=== PATIENT | male | born 1955 | race Caucasian/White ===

== ENCOUNTER 2020-06-22 21:42 | Inpatient (IN) | payer MEDICAID ==
[~2020-06-22] VITALS: Ht 170.2 cm; Wt 90.3 kg
[2020-06-22 21:30] VITALS: BP 124/100
[2020-06-22 22:00] VITALS: BP 126/94
[2020-06-22] MEDS ORDERED: BISACODYL 10MG SUPP PR PRN (22:15)
[2020-06-22] MEDS ORDERED: NITROGLYCERIN 0.4MG TABLET SL SL PRN (22:15)
[2020-06-22] MEDS ORDERED: ACETAMINOPHEN 325MG TABLET PO PRN (22:15)
[2020-06-22] MEDS ORDERED: ASCORBIC ACID 500 MG TABLET PO SCH (22:30)
[2020-06-22] MEDS ORDERED: DOCUSATE SODIUM 100MG CAPSULE PO SCH (23:00)
[2020-06-22] MEDS ORDERED: CHLORHEXIDINE GLUCONATE 4% EXTERNAL USE TOP SCH (23:00)
[2020-06-22] MEDS ORDERED: FUROSEMIDE 40MG/4ML VIAL IVP NR (23:00)
[2020-06-22] MEDS: ALLOPURINOL 300 MG TABLET PO SCH (23:19)
[2020-06-22] MEDS ORDERED: MAGNESIUM 2 G PREMIX 50 ML IV NR (23:30)
[2020-06-22 23:43] LABS: BASOPHILS % 0.7 % (0.0-2.0); HEMATOCRIT. 52.9 % (42.0-52.0); LYMPHOCYTES % 11.6 % (20.0-50.0); MEAN CORPUSCULAR HEMOGLOBIN 30.6 pg (28.0-32.0); MEAN CORPUSCULAR VOLUME 95.2 fL (80.0-94.0); MEAN PLATELET VOLUME 10.9 fl (7.4-10.4); MONOCYTES % 13.9 % (2.0-8.0); NEUTROPHILS % 72.8 % (40.0-76.0); PLATELET 129 x1000/uL (130-400); RED BLOOD CELL COUNT 5.56 mill/uL (4.7-6.1); RED CELL DISTRIBUTION WIDTH 16.1 % (11.6-14.6)
[2020-06-22 23:50] LABS: CHLORIDE 98 mEq/L (98-107)
[2020-06-22 23:52] LABS: INR 1.2; PARTIAL THROMBOPLASTIN TIME 27.3 sec (23.4-31.0)
[2020-06-23] VITALS (50 sets, daily range): BP systolic 48–165; BP diastolic 28–108
[2020-06-23] MEDS ORDERED: THROMBIN (BOVINE) 5000 UNITS/VIAL TOP ONE (05:24)
[2020-06-23] MEDS ORDERED: SKIN ADHESIVE 0.7 GM EA TOP ONE (05:24)
[2020-06-23] MEDS ORDERED: BACITRACIN 50,000 UNITS/VIAL ONE (05:24)
[2020-06-23] MEDS ORDERED: ACETAMINOPHEN 500MG TABLET ONE (05:55)
[2020-06-23] MEDS ORDERED: HEPARIN 1000 UNITS/ML 10ML ONE ×2 (05:55→05:56)
[2020-06-23] MEDS ORDERED: INSULIN REGULAR (DRIP) 100 UNITS in SODIUM CHLORIDE 0.9% 99 ML IV PRN (06:00)
[2020-06-23] MEDS ORDERED: NICARDIPINE 40MG/200ML PREMIX 200 ML IV PRN (06:00)
[2020-06-23] MEDS ORDERED: EPINEPHRINE 5 MG in DEXT 5% WATER 245 ML IV PRN (06:00)
[2020-06-23] MEDS ORDERED: DOPAMINE 400 MG PREMIX 250 ML IV PRN (06:00)
[2020-06-23] MEDS ORDERED: FUROSEMIDE 40MG/4ML VIAL IVP NR (06:00)
[2020-06-23] MEDS ORDERED: CEFAZOLIN 2,000 MG in DEXT 5% WATER 100 ML IV PRN (06:00)
[2020-06-23] MEDS ORDERED: CHLORHEXIDINE GLUCONATE 4% EXTERNAL USE TOP SCH (06:00)
[2020-06-23] MEDS ORDERED: DEL NIDO ELECTROLYTE-S(PH 7.4) 1,000 ML IV PRN ×2 (06:00)
[2020-06-23] MEDS ORDERED: DOBUTAMINE 250 MG PREMIX 250 ML IV PRN (06:00)
[2020-06-23] MEDS ORDERED: NOREPINEPHRINE 8 MG in DEXT 5% WATER 242 ML IV PRN (06:00)
[2020-06-23] MEDS ORDERED: AMINOCAPROIC ACID 5,000 MG in SODIUM CHLORIDE 0.9% 230 ML IV PRN (06:00)
[2020-06-23] MEDS ORDERED: PAPAVERINE HCL 180MG in SODIUM CHLORIDE 0.9% 24ML IV PRN (06:00)
[2020-06-23] MEDS: ALLOPURINOL 300 MG TABLET PO SCH (06:09)
[2020-06-23] MEDS ORDERED: HYDROMORPHONE HCL/PF 2MG/ML (OR) ONE (06:50)
[2020-06-23] MEDS ORDERED: AMIODARONE HCL 900 MG in DEXT 5% WATER 500 ML IV ONE (07:30)
[2020-06-23] MEDS ORDERED: ROCURONIUM BROMIDE 10MG/ML VIAL 5ML IV ONE (07:56)
[2020-06-23] MEDS ORDERED: PROPOFOL 200MG/20ML VIAL IV ONE (07:56)
[2020-06-23] MEDS ORDERED: FUROSEMIDE 100MG/10ML VIAL ONE (07:56)
[2020-06-23] MEDS ORDERED: CALCIUM CHLORIDE 1GM/10ML SYR IV ONE (08:02)
[2020-06-23] MEDS ORDERED: AMINOCAPROIC ACID 250 MG/ML 20ML VIAL ONE (08:02)
[2020-06-23] MEDS ORDERED: MINERAL OIL 30ML BOTTLE PO NR (11:15)
[2020-06-23] MEDS ORDERED: NEOSTIGMINE METHYLSULFATE 1MG/ML 10 ML VIAL ONE (11:52)
[2020-06-23] MEDS ORDERED: ONDANSETRON HCL 4MG/2ML INJ IV PRN (12:00)
[2020-06-23] MEDS ORDERED: MAGNESIUM SULFATE 3 GM in DEXT 5% WATER 100 ML IV PRN (12:00)
[2020-06-23] MEDS ORDERED: CALCIUM CHLORIDE 3,000 MG in DEXT 5% WATER 250 ML IV PRN (12:00)
[2020-06-23] MEDS ORDERED: MORPHINE SULFATE 2 MG/ML CPJ (NOT FOR IM USE) IV PRN (12:00)
[2020-06-23] MEDS ORDERED: MAGNESIUM 2 G PREMIX 50 ML IV PRN (12:00)
[2020-06-23] MEDS ORDERED: ACETAMINOPHEN 325MG TABLET PO PRN (12:00)
[2020-06-23] MEDS ORDERED: MAGNESIUM 1 G PREMIX 100 ML IV PRN (12:00)
[2020-06-23] MEDS ORDERED: ALBUMIN HUMAN 25GM/100ML (25%) IV PRN (12:00)
[2020-06-23] MEDS ORDERED: ALBUTEROL 90MCG/PUFF 17GM INHALER INH ONE (12:08)
[2020-06-23] MEDS ORDERED: KCL 10MEQ/50ML PREMIX 150 ML IV PRN (12:15)
[2020-06-23] MEDS ORDERED: KCL 10MEQ/50ML PREMIX 100 ML IV PRN (12:15)
[2020-06-23] MEDS ORDERED: HALOPERIDOL 5MG TABLET ONE (12:54)
[2020-06-23 12:55] LABS: BG BASE EXCESS -6.3 mmol/L (-2.0-2.0); BG CARBOXYHEMOGLOBIN 1.2 % (0.5-1.5); BG METHEMOGLOBIN 0.3 % (0.0-1.5); BG OXYHEMOGLOBIN 95.5 % (94.0-97.0); BG PCO2 49.2 mmHg (35.0-45.0); BG PH 7.249 (7.350-7.450); BG PO2 103.4 mmHg (75.0-100.0); BG SAMPLE SITE ALINE; BG TOTAL HEMOGLOBIN 12.1 g/dL (12.0-18.0); BG VENT MODE MASK - BIPAP
[2020-06-23] MEDS ORDERED: HALOPERIDOL LACTATE 5MG/ML VIAL IM ONE ×2 (12:55→13:15)
[2020-06-23] MEDS: DOPAMINE 400MG/250ML PREMIX 250 ML IV SCH (13:11)
[2020-06-23 13:30] LABS: HEMATOCRIT. 33.4 % (42.0-52.0); MEAN CORPUSCULAR HEMOGLOBIN 31.3 pg (28.0-32.0); MEAN CORPUSCULAR VOLUME 94.9 fL (80.0-94.0); MEAN PLATELET VOLUME 9.9 fl (7.4-10.4); PLATELET 131 x1000/uL (130-400); RED BLOOD CELL COUNT 3.52 mill/uL (4.7-6.1); RED CELL DISTRIBUTION WIDTH 15.7 % (11.6-14.6)
[2020-06-23] MEDS: DEXT 5%/0.45% NACL 1000ML 1,000 ML IV SCH (13:30)
[2020-06-23] MEDS ORDERED: SODIUM BICARBONATE 8.4% 1 MEQ/ML 50ML SYR IV NR (14:30)
[2020-06-23 14:31] LABS: CHLORIDE 102 mEq/L (98-107)
[2020-06-23] MEDS ORDERED: SODIUM BICARBONATE 8.4% 1 MEQ/ML 50ML SYR IV ONE (14:41)
[2020-06-23] MEDS ORDERED: DESMOPRESSIN ACETATE 4MCG/ML AMP IV ONE (15:00)
[2020-06-23] MEDS ORDERED: FUROSEMIDE 100MG/10ML VIAL IVP NR (15:16)
[2020-06-23] MEDS: CEFAZOLIN 1000MG PREMIX 50 ML IV SCH ×2 (15:29→21:46)
[2020-06-23] MEDS ORDERED: DESMOPRESSIN ACETATE 25 MCG in SODIUM CHLORIDE 0.9% 50 ML IV NR (16:00)
[2020-06-23] MEDS ORDERED: PROTAMINE SULFATE 10MG/ML VIAL 5ML IV NR (16:00)
[2020-06-23] MEDS: IPRATROPIUM/ALBUTEROL 0.5-3(2.5)MG/3ML NEB HHN SCH ×3 (16:11→21:03)
[2020-06-23] MEDS: DOCUSATE SODIUM 100MG CAPSULE PO SCH (17:00)
[2020-06-23 17:04] LABS: PLATELET ESTIMATE NORMAL
[2020-06-23] MEDS ORDERED: AMINOCAPROIC ACID 500 MG TABLET PO ONE ×2 (17:30)
[2020-06-23] MEDS: BACITRACIN 15GM TUBE TOP SCH (17:48)
[2020-06-23 18:06] LABS: HEMATOCRIT. 33.6 % (42.0-52.0); HEMOGLOBIN. 10.9 g/dL (14.0-18.0); MEAN CORPUSCULAR HEMOGLOBIN 31.2 pg (28.0-32.0); MEAN CORPUSCULAR VOLUME 96.3 fL (80.0-94.0); MEAN PLATELET VOLUME 10.5 fl (7.4-10.4); PLATELET 129 x1000/uL (130-400); RED BLOOD CELL COUNT 3.49 mill/uL (4.7-6.1); RED CELL DISTRIBUTION WIDTH 15.8 % (11.6-14.6)
[2020-06-23] MEDS ORDERED: AMINOCAPROIC ACID 5,000 MG in SODIUM CHLORIDE 0.9% 230 ML IV ONE ×2 (18:30→19:30)
[2020-06-23] MEDS ORDERED: ALBUMIN HUMAN 12.5GM/50ML (25%) IV NR (18:30)
[2020-06-23 19:24] LABS: PLATELET ESTIMATE DECREASED
[2020-06-23] MEDS ORDERED: DEXTROSE 50% WATER 50ML SYRINGE IV NR (21:30)
[2020-06-23] MEDS ORDERED: DEXTROSE 50% WATER 50ML SYRINGE IV PRN ×2 (21:30)
[2020-06-24] VITALS (103 sets, daily range): BP systolic 10–148; BP diastolic 8–95
[2020-06-24] MEDS ORDERED: DEXTROSE 50% WATER 50ML SYRINGE IV PRN ×3 (00:15→15:15)
[2020-06-24] MEDS ORDERED: INSULIN REGULAR (DRIP) 100 UNITS in SODIUM CHLORIDE 0.9% 100 ML IV SCH (00:30)
[2020-06-24] MEDS: BLOOD SUGAR DIAGNOSTIC STRIP TEST SCH ×15 (01:24→20:00)
[2020-06-24] MEDS: EPINEPHRINE 5 MG in DEXT 5% WATER 245 ML IV PRN ×2 (02:21→14:36)
[2020-06-24] MEDS: IPRATROPIUM/ALBUTEROL 0.5-3(2.5)MG/3ML NEB HHN SCH ×4 (03:34→20:43)
[2020-06-24] MEDS ORDERED: DOPAMINE 400MG/250ML PREMIX 250 ML IV ONE (03:48)
[2020-06-24] MEDS: DOPAMINE 400MG/250ML PREMIX 250 ML IV SCH (03:57)
[2020-06-24] MEDS ORDERED: FUROSEMIDE 40MG/4ML VIAL IVP NR (05:15)
[2020-06-24 05:31] LABS: BG BASE EXCESS -3.5 mmol/L (-2.0-2.0); BG CARBOXYHEMOGLOBIN 0.3 % (0.5-1.5); BG DEOXYHEMOGLOBIN 0.9 % (0.0-5.0); BG FRACTION INSPIRED OXYGEN 90; BG HCO3 ACT 21.1 mmol/L (22.0-26.0); BG METHEMOGLOBIN 0.3 % (0.0-1.5); BG OXYGEN SATURATION 99.1 % (92.0-98.5); BG OXYHEMOGLOBIN 98.5 % (94.0-97.0); BG PCO2 36.1 mmHg (35.0-45.0); BG PH 7.384 (7.350-7.450); BG PO2 227.6 mmHg (75.0-100.0); BG SAMPLE SITE ALINE; BG TOTAL HEMOGLOBIN 9.7 g/dL (12.0-18.0); BG VENT MODE MASK - BIPAP
[2020-06-24] MEDS: CEFAZOLIN 1000MG PREMIX 50 ML IV SCH ×2 (06:39→14:21)
[2020-06-24] MEDS ORDERED: OXYCODONE HCL/ACETAMINOPHEN 5/325MG TABLET PO PRN ×2 (08:00)
[2020-06-24 08:28] LABS: HEMATOCRIT. 30.3 % (42.0-52.0); HEMOGLOBIN. 9.7 g/dL (14.0-18.0); MEAN CORPUSCULAR HEMOGLOBIN 30.9 pg (28.0-32.0); MEAN CORPUSCULAR VOLUME 96.4 fL (80.0-94.0); MEAN PLATELET VOLUME 11.7 fl (7.4-10.4); PLATELET 95 x1000/uL (130-400); RED BLOOD CELL COUNT 3.15 mill/uL (4.7-6.1); RED CELL DISTRIBUTION WIDTH 16.5 % (11.6-14.6)
[2020-06-24] MEDS: DOCUSATE SODIUM 100MG CAPSULE PO SCH ×2 (08:46→17:16)
[2020-06-24] MEDS: ASPIRIN 81MG TABLET PO SCH (08:46)
[2020-06-24] MEDS: BACITRACIN 15GM TUBE TOP SCH ×2 (08:47→17:15)
[2020-06-24] MEDS ORDERED: INSULIN REGULAR (DRIP) 100 UNITS in SODIUM CHLORIDE 0.9% 99 ML IV SCH (10:24)
[2020-06-24 11:39] LABS: BG BASE EXCESS -0.8 mmol/L (-2.0-2.0); BG CALCIUM 1.07 mmol/L (1.13-1.32); BG CARBOXYHEMOGLOBIN 1.6 % (0.5-1.5); BG CHLORIDE 99 mmol/L (98-106); BG DEOXYHEMOGLOBIN 1.1 % (0.0-5.0); BG HCO3 ACT 23.7 mmol/L (22.0-26.0); BG OXYGEN SATURATION 98.9 % (92.0-98.5); BG OXYHEMOGLOBIN 97.3 % (94.0-97.0); BG PCO2 39.1 mmHg (35.0-45.0); BG PH 7.401 (7.350-7.450); BG PO2 144.9 mmHg (75.0-100.0); BG POTASSIUM 3.68 mmol/L (3.50-5.30); BG SODIUM 132.2 mmol/L (135.0-148.0); BG TOTAL HEMOGLOBIN 15.9 g/dL (12.0-18.0)
[2020-06-24 11:40] LABS: BG BASE EXCESS -2.2 mmol/L (-2.0-2.0); BG CALCIUM 1.15 mmol/L (1.13-1.32); BG CARBOXYHEMOGLOBIN 0.1 % (0.5-1.5); BG CHLORIDE 99 mmol/L (98-106); BG DEOXYHEMOGLOBIN 1.5 % (0.0-5.0); BG HCO3 ACT 22.6 mmol/L (22.0-26.0); BG METHEMOGLOBIN 0.4 % (0.0-1.5); BG OXYGEN SATURATION 98.5 % (92.0-98.5); BG PCO2 39.1 mmHg (35.0-45.0); BG PO2 171.8 mmHg (75.0-100.0); BG POTASSIUM 4.07 mmol/L (3.50-5.30); BG SODIUM 129.2 mmol/L (135.0-148.0)
[2020-06-24 11:43] LABS: BG BASE EXCESS -1.2 mmol/L (-2.0-2.0); BG CALCIUM 0.88 mmol/L (1.13-1.32); BG CARBOXYHEMOGLOBIN 0.3 % (0.5-1.5); BG CHLORIDE 100 mmol/L (98-106); BG DEOXYHEMOGLOBIN 0.9 % (0.0-5.0); BG HCO3 ACT 24.8 mmol/L (22.0-26.0); BG METHEMOGLOBIN 0.5 % (0.0-1.5); BG OXYGEN SATURATION 99.1 % (92.0-98.5); BG OXYHEMOGLOBIN 98.3 % (94.0-97.0); BG PCO2 47.1 mmHg (35.0-45.0); BG PO2 334.3 mmHg (75.0-100.0); BG POTASSIUM 4.33 mmol/L (3.50-5.30); BG SODIUM 132.2 mmol/L (135.0-148.0); BG TOTAL HEMOGLOBIN 11.2 g/dL (12.0-18.0)
[2020-06-24 11:44] LABS: BG BASE EXCESS -1.1 mmol/L (-2.0-2.0); BG CALCIUM 1.37 mmol/L (1.13-1.32); BG CARBOXYHEMOGLOBIN 0.1 % (0.5-1.5); BG CHLORIDE 98 mmol/L (98-106); BG HCO3 ACT 22.5 mmol/L (22.0-26.0); BG METHEMOGLOBIN 0.4 % (0.0-1.5); BG OXYHEMOGLOBIN 98.5 % (94.0-97.0); BG PCO2 33.5 mmHg (35.0-45.0); BG PH 7.445 (7.350-7.450); BG PO2 304.7 mmHg (75.0-100.0); BG POTASSIUM 4.57 mmol/L (3.50-5.30); BG SODIUM 127.5 mmol/L (135.0-148.0); BG TOTAL HEMOGLOBIN 10.4 g/dL (12.0-18.0)
[2020-06-24 11:45] LABS: BG BASE EXCESS -0.6 mmol/L (-2.0-2.0); BG CARBOXYHEMOGLOBIN 0.3 % (0.5-1.5); BG CHLORIDE 95 mmol/L (98-106); BG DEOXYHEMOGLOBIN 0.9 % (0.0-5.0); BG HCO3 ACT 23.6 mmol/L (22.0-26.0); BG METHEMOGLOBIN 0.3 % (0.0-1.5); BG OXYGEN SATURATION 99.1 % (92.0-98.5); BG OXYHEMOGLOBIN 98.5 % (94.0-97.0); BG PCO2 37.3 mmHg (35.0-45.0); BG PH 7.419 (7.350-7.450); BG PO2 308.3 mmHg (75.0-100.0); BG POTASSIUM 4.54 mmol/L (3.50-5.30); BG TOTAL HEMOGLOBIN 11.6 g/dL (12.0-18.0)
[2020-06-24] MEDS ORDERED: CLOPIDOGREL 75MG TABLET PO SCH (12:15)
[2020-06-24] MEDS ORDERED: HEPARIN 5000 UNITS/ML VIAL SUBCUT SCH (12:30)
[2020-06-24] MEDS: FAMOTIDINE 20MG/2ML VIAL IV SCH (12:41)
[2020-06-24] MEDS ORDERED: MINERAL OIL 30ML BOTTLE PO NR (13:00)
[2020-06-24] MEDS ORDERED: AMIODARONE HCL 150 MG in DEXT 5% WATER 100 ML IV SCH (13:00)
[2020-06-24] MEDS: DEXT 5%/0.45% NACL 1000ML 1,000 ML IV SCH (13:01)
[2020-06-24 13:58] LABS: PLATELET ESTIMATE DECREASED
[2020-06-24] MEDS: INSULIN LISPRO 100 UNITS/ML SUBCUT SCH ×2 (15:57→21:19)
[2020-06-24] MEDS ORDERED: FUROSEMIDE 100MG/10ML VIAL IVP NR (18:00)
[2020-06-24] MEDS ORDERED: DIPHENHYDRAMINE 25MG CAPSULE PO PRN (18:00)
[2020-06-24] MEDS ORDERED: FUROSEMIDE 20MG TABLET PO NR (18:15)
[2020-06-24] MEDS: HEPARIN 5000 UNITS/ML VIAL SUBCUT SCH (21:07)
[2020-06-24] MEDS: ALBUMIN HUMAN 25GM/100ML (25%) IV SCH ×2 (21:07→23:52)
[2020-06-24] MEDS: FUROSEMIDE 250 MG in SODIUM CHLORIDE 0.9% 225 ML IV SCH (21:09)
[2020-06-24] MEDS: AMIODARONE HCL 200 MG TABLET PO SCH (21:39)
[2020-06-24 22:45] LABS: BG BASE EXCESS -3.6 mmol/L (-2.0-2.0); BG CARBOXYHEMOGLOBIN 0.3 % (0.5-1.5); BG DEOXYHEMOGLOBIN 2.9 % (0.0-5.0); BG FRACTION INSPIRED OXYGEN 40; BG HCO3 ACT 20.6 mmol/L (22.0-26.0); BG METHEMOGLOBIN 0.3 % (0.0-1.5); BG OXYGEN SATURATION 97.1 % (92.0-98.5); BG OXYHEMOGLOBIN 96.5 % (94.0-97.0); BG PCO2 34.2 mmHg (35.0-45.0); BG PH 7.398 (7.350-7.450); BG PO2 99.9 mmHg (75.0-100.0); BG SAMPLE SITE ALINE; BG TOTAL HEMOGLOBIN 10.1 g/dL (12.0-18.0); BG VENT MODE NASAL CANNULA
[2020-06-24] MEDS: ACETYLCYSTEINE 200MG/ML 20% VIAL 4ML PO SCH (23:52)
[2020-06-25] VITALS (108 sets, daily range): BP systolic 53–157; BP diastolic 39–102
[2020-06-25] MEDS: BLOOD SUGAR DIAGNOSTIC STRIP TEST SCH ×6 (00:31→20:00)
[2020-06-25] MEDS: INSULIN LISPRO 100 UNITS/ML SUBCUT SCH ×6 (00:39→20:00)
[2020-06-25] MEDS: IPRATROPIUM/ALBUTEROL 0.5-3(2.5)MG/3ML NEB HHN SCH ×4 (00:44→21:32)
[2020-06-25] MEDS: ALBUMIN HUMAN 25GM/100ML (25%) IV SCH ×2 (02:02→05:04)
[2020-06-25] MEDS ORDERED: FUROSEMIDE 40MG/4ML VIAL IVP NR (02:15)
[2020-06-25] MEDS ORDERED: HALOPERIDOL LACTATE 5MG/ML VIAL IM NR (02:15)
[2020-06-25] MEDS ORDERED: METOLAZONE 5MG TABLET PO NR ×2 (03:00→18:45)
[2020-06-25] MEDS: DOPAMINE 400MG/250ML PREMIX 250 ML IV SCH (04:49)
[2020-06-25 06:43] LABS: HEMATOCRIT. 27.2 % (42.0-52.0); HEMOGLOBIN. 8.9 g/dL (14.0-18.0); MEAN CORPUSCULAR HEMOGLOBIN 31.2 pg (28.0-32.0); MEAN CORPUSCULAR VOLUME 95.9 fL (80.0-94.0); MEAN PLATELET VOLUME 11.3 fl (7.4-10.4); PLATELET 79 x1000/uL (130-400); RED BLOOD CELL COUNT 2.84 mill/uL (4.7-6.1); RED CELL DISTRIBUTION WIDTH 15.9 % (11.6-14.6)
[2020-06-25] MEDS: ACETYLCYSTEINE 200MG/ML 20% VIAL 4ML PO SCH ×2 (09:00→21:40)
[2020-06-25] MEDS: FAMOTIDINE 20MG/2ML VIAL IV SCH (09:15)
[2020-06-25] MEDS: DOCUSATE SODIUM 100MG CAPSULE PO SCH ×2 (09:15→16:32)
[2020-06-25] MEDS: ASPIRIN 81MG TABLET PO SCH (09:15)
[2020-06-25] MEDS: BACITRACIN 15GM TUBE TOP SCH ×2 (09:16→16:31)
[2020-06-25] MEDS: CLOPIDOGREL 75MG TABLET PO SCH (09:22)
[2020-06-25] MEDS: AMIODARONE HCL 200 MG TABLET PO SCH ×2 (09:22→21:40)
[2020-06-25] MEDS: HEPARIN 5000 UNITS/ML VIAL SUBCUT SCH (09:22)
[2020-06-25] MEDS ORDERED: SODIUM POLYSTYRENE SULFONATE 15 G/60 ML BOT PO SCH (11:00)
[2020-06-25] MEDS: DEXT 5%/0.45% NACL 1000ML 1,000 ML IV SCH (12:36)
[2020-06-25] MEDS: DEXT 5%/0.9% NACL 1,000 ML IV SCH (12:45)
[2020-06-25 16:34] LABS: PLATELET ESTIMATE DECREASED
[2020-06-25] MEDS ORDERED: MINERAL OIL 30ML BOTTLE PO NR (20:00)
[2020-06-25] MEDS: FUROSEMIDE 250 MG in SODIUM CHLORIDE 0.9% 225 ML IV SCH (21:43)
[2020-06-26] VITALS (86 sets, daily range): BP systolic 100–160; BP diastolic 32–103
[2020-06-26] MEDS: BLOOD SUGAR DIAGNOSTIC STRIP TEST SCH ×6 (00:53→20:12)
[2020-06-26] MEDS: INSULIN LISPRO 100 UNITS/ML SUBCUT SCH ×6 (00:54→20:00)
[2020-06-26] MEDS: HEPARIN 5000 UNITS/ML VIAL SUBCUT SCH ×3 (01:14→21:01)
[2020-06-26] MEDS: IPRATROPIUM/ALBUTEROL 0.5-3(2.5)MG/3ML NEB HHN SCH ×5 (02:57→22:45)
[2020-06-26] MEDS: DOPAMINE 400MG/250ML PREMIX 250 ML IV SCH (05:54)
[2020-06-26 06:15] LABS: HEMATOCRIT. 36.6 % (42.0-52.0); HEMOGLOBIN. 12.2 g/dL (14.0-18.0); MEAN CORPUSCULAR HEMOGLOBIN 30.7 pg (28.0-32.0); MEAN CORPUSCULAR VOLUME 92.3 fL (80.0-94.0); MEAN PLATELET VOLUME 11.9 fl (7.4-10.4); PLATELET 85 x1000/uL (130-400); RED BLOOD CELL COUNT 3.97 mill/uL (4.7-6.1); RED CELL DISTRIBUTION WIDTH 16.2 % (11.6-14.6)
[2020-06-26 06:44] LABS: PHOSPHORUS 7.5 mg/dL (2.5-4.9)
[2020-06-26] MEDS ORDERED: ALBUMIN HUMAN 25GM/500ML (5%) IV SCH (08:00)
[2020-06-26] MEDS: ACETYLCYSTEINE 200MG/ML 20% VIAL 4ML PO SCH (09:29)
[2020-06-26] MEDS: KCL 10MEQ/50ML PREMIX 200 ML IV PRN (09:29)
[2020-06-26] MEDS: AMIODARONE HCL 200 MG TABLET PO SCH ×2 (09:29→21:02)
[2020-06-26] MEDS: CLOPIDOGREL 75MG TABLET PO SCH (09:29)
[2020-06-26] MEDS: ASPIRIN 81MG TABLET PO SCH (09:29)
[2020-06-26] MEDS: BACITRACIN 15GM TUBE TOP SCH ×2 (09:30→16:02)
[2020-06-26] MEDS: DOCUSATE SODIUM 100MG CAPSULE PO SCH ×2 (09:33→16:07)
[2020-06-26 11:21] LABS: BG BASE EXCESS 7.2 mmol/L (-2.0-2.0); BG CARBOXYHEMOGLOBIN 0.9 % (0.5-1.5); BG DEOXYHEMOGLOBIN 1.2 % (0.0-5.0); BG HCO3 ACT 31.7 mmol/L (22.0-26.0); BG METHEMOGLOBIN 0.3 % (0.0-1.5); BG OXYGEN SATURATION 98.8 % (92.0-98.5); BG OXYHEMOGLOBIN 97.6 % (94.0-97.0); BG PCO2 44.2 mmHg (35.0-45.0); BG PH 7.473 (7.350-7.450); BG SAMPLE SITE LEFT RADIAL; BG TOTAL HEMOGLOBIN 12.3 g/dL (12.0-18.0); BG VENT MODE MASK - SIMPLE
[2020-06-26] MEDS: FAMOTIDINE 20MG/2ML VIAL IV SCH (12:24)
[2020-06-26] MEDS: DEXT 5%/0.9% NACL 1,000 ML IV SCH (12:28)
[2020-06-26 13:51] LABS: PLATELET ESTIMATE DECREASED
[2020-06-26] MEDS ORDERED: ALBUMIN HUMAN 25GM/500ML (5%) IV NR (18:45)
[2020-06-26] MEDS ORDERED: FUROSEMIDE 250 MG in SODIUM CHLORIDE 0.9% 225 ML IV SCH (20:00)
[2020-06-26] MEDS: ALBUMIN HUMAN 25GM/100ML (25%) IV SCH ×2 (20:27→23:36)
[2020-06-26] MEDS: FUROSEMIDE 100 MG in SODIUM CHLORIDE 0.9% 90 ML IV SCH (20:38)
[2020-06-26] MEDS ORDERED: AMIODARONE HCL 150 MG in DEXT 5% WATER 100 ML IV NR (23:00)
[2020-06-26] MEDS ORDERED: AMIODARONE HCL 900 MG in DEXT 5% WATER 482 ML IV SCH (23:00)
[2020-06-27] VITALS (50 sets, daily range): BP systolic 81–138; BP diastolic 34–87
[2020-06-27] MEDS ORDERED: MAGNESIUM 2 G PREMIX 50 ML IV NR
[2020-06-27] MEDS: BLOOD SUGAR DIAGNOSTIC STRIP TEST SCH ×6 (00:30→20:52)
[2020-06-27] MEDS: INSULIN LISPRO 100 UNITS/ML SUBCUT SCH ×6 (00:38→20:00)
[2020-06-27] MEDS: IPRATROPIUM/ALBUTEROL 0.5-3(2.5)MG/3ML NEB HHN SCH ×4 (03:32→21:20)
[2020-06-27] MEDS: ALBUMIN HUMAN 25GM/100ML (25%) IV SCH (03:51)
[2020-06-27] MEDS ORDERED: FUROSEMIDE 100 MG in SODIUM CHLORIDE 0.9% 90 ML IV SCH (04:00)
[2020-06-27 06:03] LABS: HEMATOCRIT. 34.6 % (42.0-52.0); HEMOGLOBIN. 11.5 g/dL (14.0-18.0); MEAN CORPUSCULAR HEMOGLOBIN 30.9 pg (28.0-32.0); MEAN CORPUSCULAR VOLUME 93.1 fL (80.0-94.0); MEAN PLATELET VOLUME 11.6 fl (7.4-10.4); PLATELET 75 x1000/uL (130-400); RED BLOOD CELL COUNT 3.72 mill/uL (4.7-6.1)
[2020-06-27 08:53] LABS: CHLORIDE 89 mEq/L (98-107)
[2020-06-27] MEDS: CLOPIDOGREL 75MG TABLET PO SCH (08:56)
[2020-06-27] MEDS: BACITRACIN 15GM TUBE TOP SCH ×2 (08:56→16:59)
[2020-06-27] MEDS: FAMOTIDINE 20MG/2ML VIAL IV SCH (08:56)
[2020-06-27] MEDS: ASPIRIN 81MG TABLET PO SCH (08:56)
[2020-06-27] MEDS: DOCUSATE SODIUM 100MG CAPSULE PO SCH ×2 (08:56→16:59)
[2020-06-27] MEDS: KCL 10MEQ/50ML PREMIX 200 ML IV PRN (09:11)
[2020-06-27] MEDS ORDERED: LACTULOSE 20G/30ML UDC PO PRN (09:30)
[2020-06-27] MEDS ORDERED: LIDOCAINE HCL 1% 20ML VIAL (Pyxis) INJ ONE (10:06)
[2020-06-27] MEDS ORDERED: SODIUM BICARBONATE 4% (2.4MEQ) 5ML VIAL IV ONE (10:06)
[2020-06-27] MEDS: HEPARIN 5000 UNITS/ML VIAL SUBCUT SCH ×2 (10:10→20:53)
[2020-06-27] MEDS: FUROSEMIDE 100 MG in SODIUM CHLORIDE 0.9% 90 ML IV SCH (10:45)
[2020-06-27 11:03] LABS: PLATELET ESTIMATE DECREASED
[2020-06-27] MEDS ORDERED: BUMETANIDE 2.5MG/10ML VIAL IV NR (12:30)
[2020-06-27] MEDS ORDERED: KCL 20MEQ/100ML PREMIX 100 ML IV SCH (13:00)
[2020-06-27 13:24] LABS: BG DEOXYHEMOGLOBIN 1.2 % (0.0-5.0); BG FRACTION INSPIRED OXYGEN 40; BG HCO3 ACT 30.4 mmol/L (22.0-26.0); BG METHEMOGLOBIN 0.1 % (0.0-1.5); BG OXYGEN SATURATION 98.8 % (92.0-98.5); BG OXYHEMOGLOBIN 97.7 % (94.0-97.0); BG PCO2 38.6 mmHg (35.0-45.0); BG PH 7.514 (7.350-7.450); BG PO2 125.2 mmHg (75.0-100.0); BG SAMPLE SITE RIGHT BRACHIAL; BG TOTAL HEMOGLOBIN 12.3 g/dL (12.0-18.0); BG VENT MODE NASAL CANNULA
[2020-06-27] MEDS ORDERED: METOPROLOL TARTRATE 25MG TABLET PO SCH (21:00)
[2020-06-28] VITALS (14 sets, daily range): BP systolic 90–128; BP diastolic 49–80
[2020-06-28] MEDS: BLOOD SUGAR DIAGNOSTIC STRIP TEST SCH ×6 (00:55→20:49)
[2020-06-28] MEDS: INSULIN LISPRO 100 UNITS/ML SUBCUT SCH ×6 (04:15→20:49)
[2020-06-28 06:34] LABS: HEMOGLOBIN. 11.8 g/dL (14.0-18.0); MEAN CORPUSCULAR HEMOGLOBIN 30.7 pg (28.0-32.0); MEAN CORPUSCULAR VOLUME 93.5 fL (80.0-94.0); MEAN PLATELET VOLUME 12.1 fl (7.4-10.4); PLATELET 110 x1000/uL (130-400); RED BLOOD CELL COUNT 3.85 mill/uL (4.7-6.1); RED CELL DISTRIBUTION WIDTH 15.8 % (11.6-14.6)
[2020-06-28 06:38] LABS: CHLORIDE 86 mEq/L (98-107)
[2020-06-28 06:44] LABS: PHOSPHORUS 5.1 mg/dL (2.5-4.9)
[2020-06-28] MEDS: IPRATROPIUM/ALBUTEROL 0.5-3(2.5)MG/3ML NEB HHN SCH ×3 (07:55→21:38)
[2020-06-28] MEDS: ASPIRIN 81MG TABLET PO SCH (08:11)
[2020-06-28] MEDS: DOCUSATE SODIUM 100MG CAPSULE PO SCH ×2 (08:11→16:35)
[2020-06-28] MEDS: CLOPIDOGREL 75MG TABLET PO SCH (08:11)
[2020-06-28] MEDS: FAMOTIDINE 20MG/2ML VIAL IV SCH (08:11)
[2020-06-28] MEDS: METOPROLOL TARTRATE 25MG TABLET PO SCH ×2 (08:16→20:50)
[2020-06-28] MEDS ORDERED: BUMETANIDE 2.5MG/10ML VIAL IV SCH (09:00)
[2020-06-28] MEDS ORDERED: MINERAL OIL 30ML BOTTLE PO SCH (09:00)
[2020-06-28] MEDS: MIDODRINE HCL 5MG TABLET PO SCH ×3 (09:28→20:58)
[2020-06-28] MEDS: AMIODARONE HCL 200 MG TABLET PO SCH ×2 (09:28→20:51)
[2020-06-28] MEDS: BACITRACIN 15GM TUBE TOP SCH ×2 (09:31→16:35)
[2020-06-28 11:09] LABS: BG BASE EXCESS 8.8 mmol/L (-2.0-2.0); BG FRACTION INSPIRED OXYGEN 28; BG HCO3 ACT 32.5 mmol/L (22.0-26.0); BG METHEMOGLOBIN 0.4 % (0.0-1.5); BG OXYHEMOGLOBIN 96.6 % (94.0-97.0); BG PCO2 41.2 mmHg (35.0-45.0); BG PH 7.515 (7.350-7.450); BG PO2 103.3 mmHg (75.0-100.0); BG SAMPLE SITE RIGHT BRACHIAL; BG TOTAL HEMOGLOBIN 12.6 g/dL (12.0-18.0); BG VENT MODE NASAL CANNULA
[2020-06-28] MEDS ORDERED: POTASSIUM CHLORIDE 20MEQ TABLET SR PO SCH (12:45)
[2020-06-28 16:40] LABS: NUCLEATED RED BLOOD CELLS 1 /100 WBC; PLATELET ESTIMATE DECREASED
[2020-06-29] VITALS (9 sets, daily range): BP systolic 109–139; BP diastolic 50–94
[2020-06-29] MEDS: INSULIN LISPRO 100 UNITS/ML SUBCUT SCH ×4 (00:23→12:12)
[2020-06-29] MEDS: BLOOD SUGAR DIAGNOSTIC STRIP TEST SCH ×4 (00:24→12:09)
[2020-06-29] MEDS: IPRATROPIUM/ALBUTEROL 0.5-3(2.5)MG/3ML NEB HHN SCH ×2 (01:00→05:32)
[2020-06-29] MEDS: MIDODRINE HCL 5MG TABLET PO SCH (06:22)
[2020-06-29] MEDS ORDERED: FUROSEMIDE 40MG/4ML VIAL IVP NR (07:00)
[2020-06-29] MEDS ORDERED: MINERAL OIL 30ML BOTTLE PO NR (07:00)
[2020-06-29 07:01] LABS: BASOPHILS % 0.5 % (0.0-2.0); EOSINOPHILS % 0.5 % (0.0-5.0); HEMATOCRIT. 37.7 % (42.0-52.0); HEMOGLOBIN. 12.1 g/dL (14.0-18.0); MEAN CORPUSCULAR HEMOGLOBIN 30.1 pg (28.0-32.0); MEAN CORPUSCULAR VOLUME 93.2 fL (80.0-94.0); MEAN PLATELET VOLUME 12.2 fl (7.4-10.4); MONOCYTES % 11.6 % (2.0-8.0); NEUTROPHILS % 78.4 % (40.0-76.0); PLATELET 143 x1000/uL (130-400); RED BLOOD CELL COUNT 4.04 mill/uL (4.7-6.1); RED CELL DISTRIBUTION WIDTH 15.9 % (11.6-14.6)
[2020-06-29] MEDS ORDERED: MIDODRINE HCL 5MG TABLET PO SCH (07:15)
[2020-06-29] MEDS ORDERED: POTASSIUM CHLORIDE 20MEQ TABLET SR PO SCH (08:00)
[2020-06-29] MEDS ORDERED: MAGNESIUM OXIDE 400MG TABLET PO SCH (08:00)
[2020-06-29 08:02] LABS: PHOSPHORUS 3.3 mg/dL (2.5-4.9)
[2020-06-29] MEDS: ASPIRIN 81MG TABLET PO SCH (08:14)
[2020-06-29] MEDS: AMIODARONE HCL 200 MG TABLET PO SCH (08:14)
[2020-06-29] MEDS: CLOPIDOGREL 75MG TABLET PO SCH (08:15)
[2020-06-29] MEDS: DOCUSATE SODIUM 100MG CAPSULE PO SCH (08:15)
[2020-06-29] MEDS: BACITRACIN 15GM TUBE TOP SCH (08:23)
[2020-06-29] MEDS: METOPROLOL TARTRATE 25MG TABLET PO SCH (08:39)
[2020-06-29] MEDS: POTASSIUM CHLORIDE 20MEQ TABLET SR PO SCH ×2 (09:00→10:19)
[2020-06-29] MEDS ORDERED: FAMOTIDINE 20MG TABLET PO SCH (09:00)
[2020-06-29] MEDS ORDERED: FUROSEMIDE 40MG TABLET PO SCH (09:00)
== END 2020-06-29 15:40 | disposition home health service (06) | DRG 165 ==
LOC: 3WST 21:42 → 5EST 06-23 08:16 → 3WST 06-28 00:47
PROVIDERS: ADMIT Internal Medicine; ATTEND Internal Medicine
PROC: 02100Z9 Bypass Coronary Artery, One Artery from Left Internal Mammary, Open Approach (ICD-10-PCS; principal; 2020-06-23)
PROC: 021309W Bypass Coronary Artery, Four or More Arteries from Aorta with Autologous Venous Tissue, Open Approach (ICD-10-PCS; 2020-06-23)
PROC: 30233N1 Transfusion of Nonautologous Red Blood Cells into Peripheral Vein, Percutaneous Approach (ICD-10-PCS; 2020-06-23)
PROC: 06BQ4ZZ Excision of Left Saphenous Vein, Percutaneous Endoscopic Approach (ICD-10-PCS; 2020-06-23)
PROC: 5A09357 Assistance with Respiratory Ventilation, Less than 24 Consecutive Hours, Continuous Positive Airway Pressure (ICD-10-PCS; 2020-06-23)
PROC: 02L70CK Occlusion of Left Atrial Appendage with Extraluminal Device, Open Approach (ICD-10-PCS; 2020-06-23)
PROC: 02C00ZZ Extirpation of Matter from Coronary Artery, One Artery, Open Approach (ICD-10-PCS; 2020-06-23)
PROC: 02HV33Z Insertion of Infusion Device into Superior Vena Cava, Percutaneous Approach (ICD-10-PCS; 2020-06-27)
PROC: B548ZZA Ultrasonography of Superior Vena Cava, Guidance (ICD-10-PCS; 2020-06-27)
DX: I21.4 Non-ST elevation (NSTEMI) myocardial infarction (principal); I25.10 Atherosclerotic heart disease of native coronary artery without angina pectoris; G93.40 Encephalopathy, unspecified; D64.9 Anemia, unspecified; D72.829 Elevated white blood cell count, unspecified; E87.5 Hyperkalemia; I11.0 Hypertensive heart disease with heart failure; E87.1 Hypo-osmolality and hyponatremia; E87.2 Acidosis; I48.91 Unspecified atrial fibrillation; D69.6 Thrombocytopenia, unspecified; F10.11 Alcohol abuse, in remission; I49.3 Ventricular premature depolarization; I50.82 Biventricular heart failure; Z20.822 Contact with and (suspected) exposure to COVID-19; N17.0 Acute kidney failure with tubular necrosis; R74.01 Elevation of levels of liver transaminase levels; I50.43 Acute on chronic combined systolic (congestive) and diastolic (congestive) heart failure; K56.7 Ileus, unspecified; Z79.02 Long term (current) use of antithrombotics/antiplatelets; Z79.82 Long term (current) use of aspirin; Z79.899 Other long term (current) drug therapy; I25.2 Old myocardial infarction; Z82.49 Family history of ischemic heart disease and other diseases of the circulatory system
CPT/HCPCS: 36415; 36600; 71045; 74018; 76705; 76770; 76937; 80048; 80051; 80053; 82140; 82375; 82550; 82805; 82962; 83036; 83735; 84100; 85025; 85520; 86850; 86900; 86920; 87426; 88304; 88311; 93005; 93306; 93880; 94640; 94660; 97110; 97116; 97163; 97166; 97530; 97535; C1725; C1729; C1751; C1758; J0282; J0690; J1170; J1265; J1630; J1644; J1815; J1940; J2270; J2597; J2704; J2710; J2720; J3475; J3480; J3490; J7040; J7042; J7050; J7060; J7608; L3908; P9016; P9021; P9041; P9047